=== PATIENT | female | born 1975 ===

== ENCOUNTER 2021-06-09 07:55 | Inpatient (IN) | payer MEDICARE ==
[2021-06-10] MEDS ORDERED: ONDANSETRON 4 MG TAB PO PRN (13:05)
[2021-06-10] MEDS ORDERED: guaiFENesin SYRUP 100MG/5ML 200 MG/10 ML CUP PO PRN (13:05)
[2021-06-10] MEDS ORDERED: HALOPERIDOL LACTATE 5 MG/ML 1 ML VIAL IM PRN (13:07)
[2021-06-10] MEDS ORDERED: MAGNESIUM HYDROXIDE 2,400 MG/10 ML CUP PO PRN (13:07)
[2021-06-10] MEDS ORDERED: LORazepam 1 MG TAB PO PRN (13:07)
[2021-06-10] MEDS ORDERED: ACETAMINOPHEN TAB 325 MG TAB PO PRN (13:07)
[2021-06-10] MEDS ORDERED: MAG HYDROX/AL HYDROX/SIMETH 30 ML CUP PO PRN (13:07)
[2021-06-10] MEDS ORDERED: LORazepam 2 MG/ML INJ IM PRN (13:11)
[2021-06-10] MEDS ORDERED: haloperidoL 5 MG TAB PO PRN (13:12)
[2021-06-10] MEDS: NICOTINE 7MG/24HR PATCH TRANSDERM SCH (14:07)
[2021-06-10] MEDS ORDERED: SUBOXONE PO SCH (16:00)
[2021-06-10] MEDS: methocarbamoL 750 MG TAB PO SCH ×2 (16:20→22:11)
[2021-06-10] MEDS: BUPRENORPHINE SL SCH ×2 (17:01→22:10)
[2021-06-10] MEDS: MIDODRINE 5 MG TAB PO SCH (17:01)
[2021-06-10] MEDS: NALOXONE SL SCH ×2 (17:01→22:10)
[2021-06-10] MEDS: PANTOPRAZOLE 40 MG TABLET PO SCH (17:02)
--- NOTE | 2021-06-10 17:52 | P.MDCNMH ---
History of Present Illness H&P Date: 06/10/21 Chief Complaint: depression 46-year-old woman with a history of leg infection warranting debridement complicated by partial paralysis of the right lower extremity, chronic migraines,chronic pain on Suboxone, GERD presented for mental health issues. Medicine is providing his consult regarding her other medical conditions. She has complaints of pain at this time, however, she says that this is her chronic pain. Otherwise, she denies fevers, chills, nausea, vomiting, chest pain, palpitations, syncope, presyncope, abdominal pain, constipation, diarrhea, dysuria, dyschezia. She is afebrile, 116/60, heart rate 88, 97% on room air. No labs or imaging from a review. All Systems reviewed and pertinent positives and negatives noted in HPI, all other symptoms are negative Gen: awake, alert HEENT: normocephalic, atraumatic, good hearing acuity, moist mucous membranes Resp: good air exchange, breathing comfortably with no accessory muscle use CVS: good distal perfusion x 4, GI: soft, NTTP, ND : no SPT, no CVAT, adan catheter Not present MSK: no pitting edema, no clubbing, sores in foot Neuro: non-focal, moving all extremities Psych: cooperative, euthymic mood Assessment/plan: Chronic pain Partial paralysis Pressure ulcers of foot Hx of migraines GERD Plan: -resumed her home medications -wound care consult for pressure sores -tylenol PRN for pain, in addition to resuming her home suboxone, GABApentin, robaxin Thank you for this consult. A member of our team is available 07/09, should any concerns/questions arise, please reach out via perfect serve. Past Medical History Additional Past Medical History / Comment(s): Chronic Pain, Paraplegia stus post fall, Spasticity in her legs, Urinary incontinence, drop foot. History of Any Multi-Drug Resistant Organisms: None Reported Additional Past Surgical History / Comment(s): multiple surgeries on legs, she is unable to decribe. Past Anesthesia/Blood Transfusion Reactions: No Reported Reaction Past Psychological History: Anxiety, Depression Smoking Status: Current every day smoker Past Alcohol Use History: None Reported Past Drug Use History: Opiates Medications and Allergies Home Medications Medication Instructions Recorded Confirmed Type Buprenorphine HCl/Naloxone HCl 1 tab PO TID 06/10/21 06/10/21 History [Buprenorphine-Nalox 8-2 mg Tab] Divalproex Sodium 125 mg PO HS 06/10/21 06/10/21 History Docusate Sodium [Dok] 100 mg PO BID 06/10/21 06/10/21 History Gabapentin [Neurontin] 300 mg PO BID 06/10/21 06/10/21 History Melatonin 3 mg PO HS 06/10/21 06/10/21 History Methocarbamol [Robaxin-750] 750 mg PO TID 06/10/21 06/10/21 History Midodrine [ProAmatine] 5 mg PO TID 06/10/21 06/10/21 History Ondansetron [Zofran] 4 mg PO Q8HR PRN 06/10/21 06/10/21 History Pantoprazole [Protonix] 40 mg PO BID 06/10/21 06/10/21 History Sennosides/Docusate Sodium 1 tab PO BID 06/10/21 06/10/21 History [Senna-S 8.6-50 mg Tablet] guaiFENesin SYRUP 100MG/5ML 10 ml PO Q4HR PRN 06/10/21 06/10/21 History [Robitussin] polyethylene glycoL 3350 [Miralax] 1 packet PO DAILY 06/10/21 06/10/21 History Allergies Allergy/AdvReac Type Severity Reaction Status Date / Time ibuprofen Allergy Swelling Verified 06/10/21 14:38 sulfamethoxazole Allergy Anaphylaxis Verified 06/10/21 14:38 [From Bactrim] trimethoprim [From Bactrim] Allergy Anaphylaxis Verified 06/10/21 14:38 Physical Exam Osteopathic Statement: *. No significant issues noted on an osteopathic structural exam other than those noted in the History and Physical/Consult. Vitals: Vital Signs Temp Pulse Resp BP Pulse Ox 06/10/21 13:13 98.3 F 88 20 116/60 97 Intake and Output 06/10/21 06/10/21 06/10/21 06:59 14:59 22:59 Other: Weight 50.893 kg Cranial Nerve Examination - Cranial Nerves Cranial Nerve II- Optic: Intact Cranial Nerve III- Oculomotor: Intact Cranial Nerve IV- Trochlear: Intact Cranial Nerve V- Trigeminal: Intact Cranial Nerve - Abducens: Intact Cranial Nerve VII- Facial: Intact Cranial Nerve VIII- Auditory: Intact Cranial Nerve IX- Glossopharyngeal: Intact Cranial Nerve X- Vagus: Intact Cranial Nerve XI- Accessory: Intact Cranial Nerve XII- Hypoglossal: Intact
[2021-06-10] MEDS ORDERED: DIVALPROEX SPRINKLE 125 MG CAP.SPRINK PO SCH (21:00)
[2021-06-10] MEDS: DOCUSATE 100 MG CAP PO SCH (22:09)
[2021-06-10] MEDS: GABAPENTIN 300 MG CAP PO SCH (22:09)
[2021-06-10] MEDS: SENNOSIDES-DOCUSATE SODIUM 1 EACH TAB PO SCH (22:10)
[2021-06-10] MEDS: MELATONIN 3 MG TABLET PO SCH (22:10)
[2021-06-11 07:25] VITALS: RESP 16
[2021-06-11] MEDS: polyethylene glycoL 3350 17 GM POWD.PACK PO SCH (08:06)
[2021-06-11] MEDS: DOCUSATE 100 MG CAP PO SCH ×2 (08:07→21:37)
[2021-06-11] MEDS: GABAPENTIN 300 MG CAP PO SCH ×2 (08:07→21:38)
[2021-06-11] MEDS: MIDODRINE 5 MG TAB PO SCH ×4 (08:07→17:24)
[2021-06-11] MEDS: SENNOSIDES-DOCUSATE SODIUM 1 EACH TAB PO SCH ×2 (08:07→21:36)
[2021-06-11] MEDS: PANTOPRAZOLE 40 MG TABLET PO SCH ×2 (08:07→18:20)
[2021-06-11] MEDS: methocarbamoL 750 MG TAB PO SCH ×3 (08:07→21:40)
[2021-06-11] MEDS: NICOTINE 7MG/24HR PATCH TRANSDERM SCH (08:07)
[2021-06-11] MEDS: NALOXONE SL SCH ×3 (08:46→22:28)
[2021-06-11] MEDS: BUPRENORPHINE SL SCH ×3 (08:46→22:28)
--- NOTE | 2021-06-11 10:22 | P.CONS ---
History of Present Illness - Reason for Consult Consult date: 06/11/21 wound care - History of Present Illness This is a 46-year-old female being seen on the mental health unit for multiple sores to bilateral feet. Patient states that she had an injury approximately 6 months ago developing open sores. At this time she has no open ulcerations. She does have tenderness to bilateral malleolus with skin discoloration. The right malleolus does show ecchymosis and edema. Pain with palpation. Review Of Systems: Constitutional: No fever, no chills, no night sweats. No weight change. No weakness, fatigue or lethargy. No daytime sleepiness. Integumentary:reports wounds, no lesions. No rash or pruritus. No unusual bruising. No change in hair or nails. Physical exam: General Appearance: Alert, cooperative, no distress, appears stated age. Skin: See HPI all other Skin color, texture, tugor normal, no rashes or lesions. Neurologic: Alert oriented x3 Assessment: 1. Right ankle stage I pressure ulcer 2. Left ankle stage I pressure ulcer Plan: 1. Apply triad to the site daily. May cover if needed. Thank you for the consultation any questions contact the wound care center DNP note has been reviewed and discussed with Dr. Fernandes and the impression and plan of care has been directed as dictated. Past Medical History Additional Past Medical History / Comment(s): Chronic Pain, Paraplegia stus post fall, Spasticity in her legs, Urinary incontinence, drop foot. History of Any Multi-Drug Resistant Organisms: None Reported Additional Past Surgical History / Comment(s): multiple surgeries on legs, she is unable to decribe. Past Anesthesia/Blood Transfusion Reactions: No Reported Reaction Past Psychological History: Anxiety, Depression Smoking Status: Current every day smoker Past Alcohol Use History: None Reported Past Drug Use History: Opiates Medications and Allergies Home Medications Medication Instructions Recorded Confirmed Type Buprenorphine HCl/Naloxone HCl 1 tab PO TID 06/10/21 06/10/21 History [Buprenorphine-Nalox 8-2 mg Tab] Divalproex Sodium 125 mg PO HS 06/10/21 06/10/21 History Docusate Sodium [Dok] 100 mg PO BID 06/10/21 06/10/21 History Gabapentin [Neurontin] 300 mg PO BID 06/10/21 06/10/21 History Melatonin 3 mg PO HS 06/10/21 06/10/21 History Methocarbamol [Robaxin-750] 750 mg PO TID 06/10/21 06/10/21 History Midodrine [ProAmatine] 5 mg PO TID 06/10/21 06/10/21 History Ondansetron [Zofran] 4 mg PO Q8HR PRN 06/10/21 06/10/21 History Pantoprazole [Protonix] 40 mg PO BID 06/10/21 06/10/21 History Sennosides/Docusate Sodium 1 tab PO BID 06/10/21 06/10/21 History [Senna-S 8.6-50 mg Tablet] guaiFENesin SYRUP 100MG/5ML 10 ml PO Q4HR PRN 06/10/21 06/10/21 History [Robitussin] polyethylene glycoL 3350 [Miralax] 1 packet PO DAILY 06/10/21 06/10/21 History Allergies Allergy/AdvReac Type Severity Reaction Status Date / Time ibuprofen Allergy Swelling Verified 06/10/21 14:38 sulfamethoxazole Allergy Anaphylaxis Verified 06/10/21 14:38 [From Bactrim] trimethoprim [From Bactrim] Allergy Anaphylaxis Verified 06/10/21 14:38 Physical Exam Vitals: Vital Signs Temp Pulse Resp BP Pulse Ox 06/11/21 07:14 97.4 F L 83 16 98/60 98 06/10/21 13:13 98.3 F 88 20 116/60 97 Assessment and Plan (1) Pressure injury of right ankle, stage 1 Current Visit: Yes Status: Acute Code(s): L89.511 - PRESSURE ULCER OF RIGHT ANKLE, STAGE 1 SNOMED Code(s): 21964434193599 (2) Pressure injury of left ankle, stage 1 Current Visit: Yes Status: Acute Code(s): L89.521 - PRESSURE ULCER OF LEFT ANKLE, STAGE 1 SNOMED Code(s): 16582943497906
--- NOTE | 2021-06-11 13:11 | P.HP ---
Psychiatric H&P - . H&P Date: 06/11/21 History & Physical: Allergies Allergy/AdvReac Type Severity Reaction Status Date / Time ibuprofen Allergy Swelling Verified 06/10/21 14:38 sulfamethoxazole Allergy Anaphylaxis Verified 06/10/21 14:38 [From Bactrim] trimethoprim [From Bactrim] Allergy Anaphylaxis Verified 06/10/21 14:38 Vital Signs Temp 97.4 F L 06/11/21 07:14 Pulse 83 06/11/21 07:14 Resp 16 06/11/21 07:14 BP 98/60 06/11/21 07:14 Pulse Ox 98 06/11/21 07:14 Intake & Output 06/10/21 06/11/21 06/11/21 18:59 06:59 18:59 Weight 50.893 kg 06/11/21 13:11 IDENTIFYING DATA: Patient is a , on SSI, 46-year-old female with significant history of bipolar disorder who presents to the hospital from [facility] for depression and catatonia. HPI: Patient presented to the hospital on 06/10/2021, brought in by EMS from [facility] for depression, suicidal ideation, and catatonia. The patient has had a prolonged hospitalization at [facility] after being found unresponsive. There was high suspicion for intentional overdose. The patient does receive suboxone for opiate use disorder. The patient was noted to be catatonic during initial presentation at [facility] and she was treated with ativan. As per clinical certificate, completed by Dr Smalls, "The patient presented in a catatonic state, has been treated and responded well to benzodiazepines. At this time, the patient did appear to be depressed, hopeless, and helpless. Patient is unable to contract for safety." The patient's catatonia subsided and the patient was transferred to [facility] for further evaluation and treatment. Upon presentation on our psychiatric unit, the patient is currently alert and oriented in all spheres. She reports that she was feeling increasingly depressed after abruptly stopping her medications of Remeron, Thorazine, and Depakote. She reports that she has been previously diagnosed bipolar disorder although tends to present in more depressive episodes than manic episodes. She reports that she abruptly stopped her medications that she ran out of medications and has been unable to follow-up with her outpatient appointments. Currently, the patient is not endorsing any significant symptoms of depression. She is currently denying any suicidal or homicidal ideation, intention, and/or plan. She reports that prior to her presentation at [facility], she was feeling significantly depressed. At this time, the patient is not reporting any issues regarding her mood, sleep, appetite, or energy. She appears to be future oriented and is desiring discharge. She reports that she will feel safe to return back to her significant other. She is willing to sign a release of information for him. In regards to manic symptoms, the patient is currently denying any significant symptoms of jared. She denies any increased goal-directed activity, impulsivity, or grandiosity. She denies any recent periods of excessive energy. She is currently denying any significant psychotic symptoms. She reports no auditory or visual hallucinations. She denies any paranoia or other delusions. PAST PSYCHIATRIC HISTORY: Patient states that she has been diagnosed bipolar disorder. Patient reports that she is troubled numerous medications in the past was most recently on a regimen of Remeron, Thorazine, and Depakote. He reports numerous inpatient psychiatric hospitalizations including [facility] and [facility]. Patient follows up outpatient with psychiatry and psychotherapy. Patient reports a remote history of a prior suicide attempt. PMH: Additional Past Medical History / Comment(s): Chronic Pain, Paraplegia stus post fall, Spasticity in her legs, Urinary incontinence, drop foot. History of Any Multi-Drug Resistant Organisms: None Reported Additional Past Surgical History / Comment(s): multiple surgeries on legs, she is unable to decribe. Past Anesthesia/Blood Transfusion Reactions: No Reported Reaction Past Psychological History: Anxiety, Depression Smoking Status: Current every day smoker Past Alcohol Use History: None Reported Past Drug Use History: Opiates ALLERGIES: Ibuprofen, sulfamethoxazole, trimethoprim CHEMICAL DEPENDENCY HISTORY: Patient does admit that she smokes approximately half pack per day of tobacco. She denies any alcohol, marijuana, or illicit drug use. FAMILY PSYCHIATRIC/SUBSTANCE USE HISTORY: Reports a mother with depression. Otherwise no reported family psychiatric or substance abuse history. SOCIAL HISTORY: Patient was born and raised in [place]. She is currently however lives with her ex- and reports that their relationship as well. She receives disability. She has a 20-year-old daughter from a previous relationship. MENTAL STATUS EXAM: General Appearance: Patient appears to be stated age is alert, directable, and attempts to cooperate. Patient appears to have fair hygiene and grooming. Behavior: Patient is seated without any agitated behavior. Ambulates with a wheelchair. Speech: Patient's speech is fluent and nonpressured. Mood/Affect: Patient reports their mood is really good actually, affect is congruent and bright. Suicidality/Homicidality: Patient denies having any homicidal ideation intent or plan. Denies any suicidal ideations intent or plan Perceptions: Patient denies any visual hallucinations and denies any auditory hallucinations Though content/process: There is no evidence of any delusional thought content and thought process is linear and goal-directed. Memory and concentration: AOX3, grossly intact for the purposes of this session. Can spell "WORLD" backwards Judgment and insight: Good STRENGTHS/WEAKNESSES: Strength is that the patient is future and goal oriented and a significant support. Weakness is that the patient has chronic and severe mental illness. INTELLECT: average IMPRESSIONS: Bipolar 1 disorder, depressive episode, with catatonia - catatonia appears to be resolved at this point. Opiate use disorder, in remission, on opioid agonist therapy. Nicotine dependence PLAN: -Patient is admitted under involuntary however converted to voluntary status to MHU for stabilization of psychiatric symptoms and safety. Patient signed adult voluntary form and medication consent and is placed in patient's chart. -Medications : We will restart the patient's medication regimen of Depakote and Thorazine. We will start with Thorazine 25 mg daily at bedtime for mood stabilization and Depakote 250 mg by mouth at bedtime for mood stabilization. Ativan will be discontinued at this time as the patient is no longer catatonic is also receiving Suboxone for opiate use disorder. -Haldol PRN for agitation/aggression -Patient was counselled on substance abuse and desired to cut back on use -Patient was informed of the risks, benefits and side effects of the medication and patient verbally consented to taking the medications. Patient signed med consent form and was placed in chart. -Internal Medicine consult to perform medical evaluation and physical. -NRT - nicotine patch -SW on board for discharge planning. Encourage patient to participate in groups to work on coping skills. 06/11/21 13:11
[2021-06-11 13:15] VITALS: BMI 19.2
[2021-06-11] MEDS: HYDROPHILIC CREAM 180 GM TUBE TOPICAL SCH (13:43)
[2021-06-11] MEDS ORDERED: DIVALPROEX SPRINKLE 125 MG CAP.SPRINK PO SCH (21:00)
[2021-06-11] MEDS ORDERED: chlorproMAZINE 25 MG TAB PO SCH (21:00)
[2021-06-11] MEDS: MELATONIN 3 MG TABLET PO SCH (21:38)
[2021-06-12 06:48] VITALS: BP 90/51; PULSE 73; TEMP 97.6
[2021-06-12] MEDS: NICOTINE 7MG/24HR PATCH TRANSDERM SCH (08:39)
[2021-06-12] MEDS: PANTOPRAZOLE 40 MG TABLET PO SCH (08:40)
[2021-06-12] MEDS: GABAPENTIN 300 MG CAP PO SCH (08:40)
[2021-06-12] MEDS: DOCUSATE 100 MG CAP PO SCH (08:40)
[2021-06-12] MEDS: MIDODRINE 5 MG TAB PO SCH ×2 (08:40→12:40)
[2021-06-12] MEDS: methocarbamoL 750 MG TAB PO SCH (08:41)
[2021-06-12] MEDS: SENNOSIDES-DOCUSATE SODIUM 1 EACH TAB PO SCH (08:41)
[2021-06-12] MEDS: HYDROPHILIC CREAM 180 GM TUBE TOPICAL SCH (08:41)
[2021-06-12] MEDS: polyethylene glycoL 3350 17 GM POWD.PACK PO SCH (08:41)
[2021-06-12] MEDS: BUPRENORPHINE SL SCH (08:51)
[2021-06-12] MEDS: NALOXONE SL SCH (08:51)
--- NOTE | 2021-06-12 13:11 | P.DS ---
Providers Date of admission: 06/10/21 11:25 Expected date of discharge: 06/12/21 Attending physician: Lewis Wright MD Consults: 06/10/21 13:07 Consult Physician Routine Consulting Provider: Nikki Armenta Consult Reason/Comments: H and P Do you want consulting provider notified?: Yes Primary care physician: Stated None - Discharge Diagnosis(es) (1) Bipolar I disorder with catatonia Current Visit: Yes Status: Acute Priority: High (2) Use of opiates for therapeutic purposes Current Visit: Yes Status: Chronic Priority: Medium (3) Nicotine dependence Current Visit: Yes Status: Chronic Priority: Medium Hospital Course: Admission HPI: Patient is a , on SSI, 46-year-old female with significant history of bipolar disorder who presents to the hospital from [facility] for depression and catatonia. Patient presented to the hospital on 06/10/2021, brought in by EMS from [facility] for depression, suicidal ideation, and catatonia. The patient has had a prolonged hospitalization at [facility] after being found unresponsive. There was high suspicion for intentional overdose. The patient does receive suboxone for opiate use disorder. The patient was noted to be catatonic during initial presentation at [facility] and she was treated with ativan. As per clinical certificate, completed by Dr Smalls, "The patient presented in a catatonic state, has been treated and responded well to benzodiazepines. At this time, the patient did appear to be depressed, hopeless, and helpless. Patient is unable to contract for safety." The patient's catatonia subsided and the patient was transferred to [facility] for further evaluation and treatment. Upon presentation on our psychiatric unit, the patient is currently alert and oriented in all spheres. She reports that she was feeling increasingly depressed after abruptly stopping her medications of Remeron, Thorazine, and Depakote. She reports that she has been previously diagnosed bipolar disorder although tends to present in more depressive episodes than manic episodes. She reports that she abruptly stopped her medications that she ran out of medications and has been unable to follow-up with her outpatient appointments. Currently, the patient is not endorsing any significant symptoms of depression. She is currently denying any suicidal or homicidal ideation, intention, and/or plan. She reports that prior to her presentation at [facility], she was feeling significantly depressed. At this time, the patient is not reporting any issues regarding her mood, sleep, appetite, or energy. She appears to be future oriented and is desiring discharge. She reports that she will feel safe to return back to her significant other. She is willing to sign a release of information for him. In regards to manic symptoms, the patient is currently denying any significant symptoms of jared. She denies any increased goal-directed activity, impulsivity, or grandiosity. She denies any recent periods of excessive energy. She is currently denying any significant psychotic symptoms. She reports no auditory or visual hallucinations. She denies any paranoia or other delusions. Patient states that she has been diagnosed bipolar disorder. Patient reports that she is troubled numerous medications in the past was most recently on a regimen of Remeron, Thorazine, and Depakote. He reports numerous inpatient psychiatric hospitalizations including [facility] and [facility]. Patient follows up outpatient with psychiatry and psychotherapy. Patient reports a remote history of a prior suicide attempt. Hospital course: Upon admission to the unit patient was initially presenting well. She did not display any significant symptoms of depression, psychosis, jared, or catatonia. She was alert and oriented in all spheres and was directable and cooperative with the psychiatric assessment, hospitalization, and treatment. The patient was restarted on her home medications of Depakote and Thorazine. She reported a significant history of bipolar disorder and stated that these are the medications that she was previously prescribed. Over the course the hospitalization, the patient displayed continued improvement in regards her target symptoms of depression, catatonia, and suicidal ideation. She remained future and goal oriented. She was adherent with her medications and reported no significant side effects. On the day of discharge, the patient is not reporting any suicidal or homicidal ideation, intention, and/or plan. She is not reporting any auditory or visual hallucinations. She denies any paranoia or other delusions. The patient denies any access to firearms or weapons. The patient does have significant history of substance use was counseled at great length on avoiding all substances such as alcohol and marijuana. She was c ounseled on the medications and the importance of medication adherence and outpatient follow-up. Prior to discharge, family meeting will be arranged by sexual assault social worker to answer questions and ensure safety. Mental status exam: General Appearance: Patient appears to be stated age is alert, pleasant, and cooperative. Patient is in no acute distress and has fair hygiene and grooming. Behavior: Patient is calmly seated without any agitated behavior. Patient ambulates via wheelchair. Speech: Patient's speech is fluent and nonpressured. Mood/Affect: Patient reports their mood is "much better", affect is congruent and euthymic. Suicidality/Homicidality: Patient denies having any suicidal or homicidal ideation intent or plan. Perceptions: Patient denies any auditory or visual hallucinations. Though content/process: There is no evidence of any delusional thought content and thought process is linear and goal-directed. Patient is future oriented. Memory and concentration: AOX3, grossly intact for the purposes of this session. Can spell "WORLD" backwards correctly. Judgment and insight: Improved with guarded prognosis Vital Signs Temp 97.6 F 06/12/21 06:47 Pulse 73 06/12/21 06:47 Resp 16 06/12/21 06:47 BP 90/51 06/12/21 06:47 Pulse Ox 98 06/12/21 06:47 Intake & Output 06/11/21 06/12/21 06/12/21 18:59 06:59 18:59 Weight 50.893 kg Impression: Bipolar 1 disorder, depressive episode, with catatonia - resolved. Opiate use disorder, in remission, on opioid agonist therapy. Nicotine dependence Plan: -Continue with discharge today as patient has improved and stabilized psychiatrically and is not currently an imminent threat to self and/or others. Patient will remain at chronically elevated risk for harm to self and/or others due to her history of opiate abuse. -Continue medications: Depakote 250 mg by mouth at bedtime stabilization Thorazine 25 mg by mouth at bedtime for mood stabilization -Patient was counseled on the need for medication compliance and appropriate follow-up at mental health and also primary care for medical issues. Patient verbalized understanding and agreed. -Social work to arrange for and conduct family meeting to ensure safety upon discharge and answer any questions/concerns. Social work also to arrange for patients follow up appointments for psychiatric care along with follow up with primary care provider. -Patient counseled on abstaining from recreational drugs and marijuana and alcohol. Was informed/educated on the adverse effects on their physical and ment al health. Patient verbally agreed and understood. -Patient was instructed to return to the hospital or seek immediate medical care if their psychiatric or medical symptoms do worsen or reoccur. -Psychoeducation and supportive therapy provided to patient. Risks and benefits of pharmacological treatment versus the risks and benefits of nontreatment weight and discussed. Informed consent discussion held. Common side effects of psychotropics discussed such as, but not limited to headache, GI disturbance, sexual dysfunction, movement disorders, sedation, and orthostatic hypotension. Life threatening and blackbox warnings of prescribed medications also discussed. Potential risks of operating a vehicle or heavy machinery discussed with patient at length. Advised on importance of compliance and a reliable and responsible manner. Patient advised to review FDA consumer labeling of all medications prior to taking. Patient verbalized understanding of potential risks, and agrees with current treatment plan. Patient advised to medically contact physician/emergency personnel if any acute changes in condition occur. Allergies Allergy/AdvReac Type Severity Reaction Status Date / Time ibuprofen Allergy Swelling Verified 06/10/21 14:38 sulfamethoxazole Allergy Anaphylaxis Verified 06/10/21 14:38 [From Bactrim] trimethoprim [From Bactrim] Allergy Anaphylaxis Verified 06/10/21 14:38 Patient Condition at Discharge: Stable Plan - Discharge Summary Discharge Rx Participant: No New Discharge Prescriptions: New chlorproMAZINE [Thorazine] 25 mg PO HS 30 Days tab Divalproex Sprinkle [Depakote Sprinkle] 250 mg PO HS 30 Days Continue Docusate Sodium [Dok] 100 mg PO BID Pantoprazole [Protonix] 40 mg PO BID Buprenorphine HCl/Naloxone HCl [Buprenorphine-Nalox 8-2 mg Tab] 1 tab PO TID Ondansetron [Zofran] 4 mg PO Q8HR PRN PRN Reason: Nausea Methocarbamol [Robaxin-750] 750 mg PO TID Midodrine [ProAmatine] 5 mg PO TID Gabapentin [Neurontin] 300 mg PO BID Discontinued Divalproex Sodium 125 mg PO HS No Action Sennosides/Docusate Sodium [Senna-S 8.6-50 mg Tablet] 1 tab PO BID polyethylene glycoL 3350 [Miralax] 1 packet PO DAILY guaiFENesin SYRUP 100MG/5ML [Robitussin] 10 ml PO Q4HR PRN PRN Reason: Cough Melatonin 3 mg PO HS Discharge Medication List Buprenorphine HCl/Naloxone HCl [Buprenorphine-Nalox 8-2 mg Tab] 1 tab PO TID 06/10/21 [History] Docusate Sodium [Dok] 100 mg PO BID 06/10/21 [History] Gabapentin [Neurontin] 300 mg PO BID 06/10/21 [History] Melatonin 3 mg PO HS 06/10/21 [History] Methocarbamol [Robaxin-750] 750 mg PO TID 06/10/21 [History] Midodrine [ProAmatine] 5 mg PO TID 06/10/21 [History] Ondansetron [Zofran] 4 mg PO Q8HR PRN 06/10/21 [History] Pantoprazole [Protonix] 40 mg PO BID 06/10/21 [History] Sennosides/Docusate Sodium [Senna-S 8.6-50 mg Tablet] 1 tab PO BID 06/10/21 [History] guaiFENesin SYRUP 100MG/5ML [Robitussin] 10 ml PO Q4HR PRN 06/10/21 [History] polyethylene glycoL 3350 [Miralax] 1 packet PO DAILY 06/10/21 [History] Divalproex Sprinkle [Depakote Sprinkle] 250 mg PO HS 30 Days 06/12/21 [Rx] chlorproMAZINE [Thorazine] 25 mg PO HS 30 Days tab 06/12/21 [Rx] Follow up Appointment(s)/Referral(s): Psychology, [place] [Other] - 06/17/21 10:00 am (Crystal Jennings pt will get email with instructions please fill out and send back 72 hours priot to appt. Appt with be done via [facility] ) Patient Instructions/Handouts: How to Stop Smoking (DC), Bipolar Disorder (DC), Depression (DC) Activity/Diet/Wound Care/Special Instructions: Activity and diet as tolerated. Avoid the use of street drugs and alcohol. Take all medications as prescribed. When you are in need of refills on your medications please contact your medical provider and/or outpatient psychiatrist to have this done. Please go to scheduled outpatient appointment for aftercare treatment. If symptoms return or become worse, call the crisis line at and/or go to the nearest emergency room for evaluation Discharge Disposition: HOME SELF-CARE
== END 2021-06-12 13:30 | disposition home or self-care (01) | DRG 885 ==
LOC: 3MHU 06-10 11:25
PROVIDERS: ADMIT Psychiatry & Neurology Psychiatry; ATTEND Psychiatry & Neurology Psychiatry
DX: F31.9 Bipolar disorder, unspecified (principal); G82.20 Paraplegia, unspecified; R45.851 Suicidal ideations; F11.11 Opioid abuse, in remission; F17.210 Nicotine dependence, cigarettes, uncomplicated; F20.2 Catatonic schizophrenia; F41.9 Anxiety disorder, unspecified; L89.511 Pressure ulcer of right ankle, stage 1; L89.521 Pressure ulcer of left ankle, stage 1; Z79.899 Other long term (current) drug therapy; Z81.8 Family history of other mental and behavioral disorders; Z91.51 Personal history of suicidal behavior